=== PATIENT | female | born 1995 | race Caucasian/White ===

== ENCOUNTER → 2020-05-12 17:28 | Outpatient (CLI) | payer BC, MEDICAID, SELFPAY | PROVIDERS: Visit Provider Obstetrics & Gynecology | DX: Z11.59 Encounter for screening for other viral diseases (principal) | CPT/HCPCS: 87635; G2023; U0003 ==

== ENCOUNTER 2020-05-16 06:48 | Inpatient (IN) | payer BC, MEDICAID, SELFPAY ==
[2020-05-16] VITALS (57 sets, daily range): BP systolic 133–170; BP diastolic 61–101; PULSE 77–109; TEMP 36.3–38.1; O2SAT 93–100; BMI 49.6
[2020-05-16] MEDS: Lactated Ringers 1,000 ML 50 ML IV (07:35)
[2020-05-16] MEDS: 0.9% Normal Saline Single 100 ML IV.SOLN. IY (08:06)
[2020-05-16 08:11] LABS: Absolute Lymphocyte Count 2.25 X10^3/uL (0.83-4.51); Absolute Neutrophil Count 7.7 X10^3/uL (2.0-7.7); Basophil# 0.03 X10^3/uL; Basophil% 0.3 % (0-1); Eosinophil# 0.21 X10^3/uL; Eosinophils% 1.8 % (0-5); Hematocrit 37.8 % (37-47); Hemoglobin 12.3 g/dL (12.0-15.0); Lymphocyte # 2.25 X10^3/ul (4.0); Lymphocyte % 19.6 % (19-41); Mean Corp Hgb Conc 32.5 g/dL (32-36); Mean Corpuscular Hgb 29.3 pg (27.0-32.0); Mean Platelet Vol. 10.2 fl (6.2-12.0); Monocyte# 1.17 X10^3/uL; Monocyte% 10.2 % (0-10); NRBC Flagged by Analyzer 0 % (0-5); Neutrophil # 7.74 X10^3/uL (2.7-7.7); Neutrophil % 67.3 % (47-70); Platelet Count 289 K/mm3 (150-450); RBC Distribution Width CV 13.1 % (11.6-14.6); RBC Distribution Width SD 42.5 fl (35.1-43.9); White Blood Count 11.5 K/mm3 (4.4-11.0)
--- NOTE | 2020-05-16 08:27 | HP.PCM_ITS ---
History Date of Admission: 07/12/17 Final REJI: 05/31/20 Gestational age: 37 Weeks and 6 Days History of this : This is a 24 year-old, G 2P1 at 37.6 weeks gestation here for induction of labor for gestational hypertension. Denies headaches, visual changes or right upper quadrant pain. Allergies No Known Allergies Allergy (Verified 07/12/17 20:43) Home Medications: Home Medications Vit No.130/Iron/Folic [ Tablet] 1 each PO DAILY 07/12/17 Ibuprofen [Motrin] 600 mg PO Q6H PRN #60 tablet 07/16/17 Smoking Status: Never smoker Alcohol: None Number of Fetus(es): 1 History Past Pregnancies: Past Pregnancies Delivery Date Name GA/ Weeks Outcome Route Wt Sex Labor Length Anesthesia Delivery Location Provider FOB Labs: GBS neg Expected Delivery Method: Spontaneous Vaginal Review of Systems Constitutional: Denies: Anorexia Eyes: Denies: Blurred vision, Pain, Vision Change HEENT: Denies: Head Aches Cardiovascular: Denies: Chest Pain Gastrointestinal: Denies: Abdominal Pain Psychiatric: Reports: Depression Physical Exam Vitals: Vital Signs Pulse BP Pulse Ox 88 148/92 H 98 05/16/20 07:46 05/16/20 07:42 05/16/20 07:46 General: Alert, Oriented x3 Abdomen: Soft, Non Tender, Non-Distended, Gravid Neurological: Cranial nerves II-XII grossly intact [employer] INSPECTOR: Normal external genitalia Estimated gestational size: Appropriate for gestational size Presentation: Cephalic Cervix Dilation (cm): 2 Station: -2 Effacement (%): 50 Assessment/Plan This is a 24 year-old, @ 37.6 wks, GEST HTN- here for IOL 1) PRE E labs 2) Pitocin/Arzola- Arzola placed 30cc fluid- 3) Pain mgmt- epidural if requested 4) anticipate
[2020-05-16] MEDS: Oxytocin 30 units/NS 500 ml 30 UNITS/500 ML IV.SOLN IV (08:49)
[2020-05-16 09:00] LABS: AST(SGOT) 9 U/L (15-37); Alanine Aminotransfer ALT/SGPT 10 U/L (13-56); EST Glomerular Filtration Rate 162 mL/min (>60); Est Glom Filt Rate - Afr Amer 196 mL/min (>60); Uric Acid 5.6 mg/dL (2.6-6.0)
[2020-05-16] MEDS: Lactated Ringers 500 ML 999 ML IV (10:35)
[2020-05-16 11:15] LABS: Protein, Urine (Random) 76.9 mg/dL (<11.9); Protein:Creat Ratio 1144 mg/g CRE (0-200)
[2020-05-16] MEDS: fentaNYL-bupivacaine (epidural) 100 ML BAG EPIDURAL ×3 (11:43→20:22)
--- NOTE | 2020-05-16 12:19 | PCM.PN.BLA ---
Progress Note AROM performed- Clear fluid. IUPC and IFM placed. Pt is comfortable with Epidural in place. STROKE Vital Signs/Narrative: Vital Signs Temp Pulse BP Pulse Ox 05/16/20 12:04 97.9 F 93 139/83 H 05/16/20 12:00 97 98 05/16/20 11:59 98.1 F 99 145/76 H 05/16/20 11:55 103 H 143/78 H 98 05/16/20 11:54 98.3 F 101 H 165/94 H 05/16/20 11:50 99 98 05/16/20 11:49 96 151/78 H 05/16/20 11:45 101 H 98 05/16/20 11:44 95 155/83 H 05/16/20 11:40 96 99 05/16/20 11:39 154/97 H 05/16/20 11:35 88 98 05/16/20 11:34 99.1 F 103 H 146/92 H 05/16/20 11:30 81 98 05/16/20 11:25 77 99 05/16/20 11:24 167/81 H 05/16/20 11:20 86 99 05/16/20 11:10 84 99 05/16/20 11:06 81 148/79 H 05/16/20 10:37 81 146/73 H 05/16/20 09:54 83 97 05/16/20 09:53 147/85 H 05/16/20 09:20 77 140/90 H 05/16/20 08:48 78 142/83 H 98 05/16/20 08:47 80 170/101 H
[2020-05-16] MEDS: Lactated Ringers 1,000 ML 200 ML IV ×2 (14:06→18:37)
[2020-05-16] MEDS: Oxytocin 30 units/NS 500 ml 30 UNITS/500 ML IV.SOLN 334 UNITS IV (21:22)
--- NOTE | 2020-05-16 21:38 | PCM.OPRPT ---
Vaginal Delivery Maternal Presentation: Medically Indicated Induction Method of Induction: Pitocin, Arzola [facility] Reason for Induction: Preeclampsia, eclampsia - preeclampsia without severe features Amniotic Membrane Rupture Type: Artificial Amniotic Fluid Description: Clear Final REJI: 05/31/20 Final REJI Source: [place] <20 weeks Gestational age: 37 Weeks and 6 Days Date of Procedure: 05/16/20 Pre-Operative Diagnosis: Term gestation, Pre eclampsia without severe features Surgery/ Procedure Performed: Spontaneous Vaginal Delivery Type of Anesthesia: Epidural Description of Procedure: of Live male born without complication. Loose nuchal x 1. Placenta delivered without complication. Presentation: Vertex Placental Delivery Description: Spontaneous Placenta Disposition: [facility] Cord Vessel Description: 2 Vessels Nuchal Cord Compression: Without compression Cord Entanglement: Around neck x 1, loose Drain: Arzola to straight drain Estimated Blood Loss: 150 Infant A gender: Male (1 minute): 8 (5 minute): 9 Episiotomy Description: None Laceration: None Medications given after delivery: IV Pitocin Complications: None
[2020-05-17] MEDS: 0.9% Saline Lock 10 ML Syringe IV
[2020-05-17 03:27] VITALS: BP 129/72; PULSE 91; RESP 16; TEMP 36.3
--- NOTE | 2020-05-17 07:52 | PN.OBGYN_ITS ---
Subjective: pt seen at bedside, doing well. pt reports good pain control, lochia mild. bottle feeding. denies CESPEDES, visual changes. - Physical Exam Vitals/I&O's: Vital Signs Temp Pulse Resp BP Pulse Ox 97.4 F L 91 16 129/72 H 96 05/17/20 03:27 05/17/20 03:27 05/17/20 03:27 05/17/20 03:27 05/16/20 23:27 Oxygen Delivery Method Room Air Weight: 123 kg Body Mass Index (BMI) 49.6 Intake and Output for Last 24 Hours 05/15/20 05/16/20 05/17/20 23:59 23:59 23:59 Intake Total 3032.50 / 3365.50 583 / 583 Output Total 1250 / 1250 1000 / 1000 Balance 1782.50 / 2115.50 -417 / -417 General: Alert, Oriented x3 Abdomen: Soft, Non Tender, - - fundus firm Extremities: No Calf Tenderness Laboratory Results 05/16/20 07:35: WBC 11.5 H, RBC 4.20, Hgb 12.3, Hct 37.8, MCV 90.0, MCH 29.3, MCHC 32.5, RDW Std Deviation 42.5, RDW Coeff of Nawaf 13.1, Plt Count 289, MPV 10.2, Immature Gran % (Auto) 0.800, Neut % (Auto) 67.3, Lymph % (Auto) 19.6, [place] % (Auto) 10.2 H, Eos % (Auto) 1.8, Baso % (Auto) 0.3, Absolute Neuts (auto) 7.7, Absolute Lymphs (auto) 2.25, Nucleated RBC % 0 05/16/20 07:35: Blood Type A POSITIVE, Antibody Screen NEGATIVE 05/16/20 07:55: PT 13.0, INR 1.0, APTT 29.0 05/16/20 07:55: Creatinine 0.50 L, Estim Creat Clear Calc 138.40, Est GFR (MDRD) Af Amer 196, Est GFR (MDRD) Non-Af 162, Uric Acid 5.6, AST 9 L, ALT 10 L 05/16/20 10:50: U Random Total Protein 76.9 H, Urine Creatinine 67.20, Protein/Creatinin Ratio 1144 H Current Medications Acetaminophen (Tylenol) 1,000 mg PO Q8H PRN PRN PRN Reason: Pain Score 1-3/10 Bisacodyl (Dulcolax) 10 mg RECTAL UD PRN PRN Reason: If no BM Dibucaine (Dibucaine) 1 applic TOPICAL TID PRN PRN; Protocol PRN Reason: Discomfort Hydrocortisone (Hytone) 1 applic TOPICAL TID PRN PRN; Protocol PRN Reason: Discomfort Ibuprofen (Motrin) 600 mg PO Q6H PRN PRN PRN Reason: Pain Score 1-3/10 Methylergonovine Maleate (Methergine) 0.2 mg IM X1 PRN PRN Reason: Excess bleeding/uterine atony Ondansetron HCl (Zofran) 4 mg IV Q4H PRN PRN PRN Reason: Nausea Oxycodone HCl (Oxyir) 5 - 10 mg PO Q4H PRN PRN PRN Reason: Pain Score 4-10/10 Senna/Docusate Sodium (Senokot-S, Nikki-Colace) 1 - 2 tablet PO DAILY PRN PRN PRN Reason: Constipation Simethicone (Mylicon) 80 mg PO PCHS PRN PRN Reason: Indigestion/Stomach pain Sodium Chloride () 5 - 15 ml IV UD PRN PRN Reason: SALINE FLUSH Last Admin: 05/17/20 00:00 Dose: 10 ml Documented by: Medical Necessity - Tobacco Use Smoking Status: Never smoker Assessment/Plan PPD#1, doing well routine care pain mgmt monitor vs
[2020-05-17] MEDS: Ibuprofen 600 MG Tablet PO ×2 (07:54→16:25)
[2020-05-17] MEDS: Senna/Docusate Sodium 1 Tablet PO (07:55)
[2020-05-17 08:04] VITALS: BP 129/81; PULSE 90; RESP 18; TEMP 36.6; O2SAT 97
[2020-05-17 12:04] VITALS: BP 111/65; PULSE 94; RESP 18; TEMP 36.7; O2SAT 97
[2020-05-17 16:09] VITALS: BP 139/86; PULSE 89; RESP 18; TEMP 36.6; O2SAT 96
[2020-05-17 20:57] VITALS: BP 112/71; PULSE 87; RESP 14; TEMP 36.4
[2020-05-18 01:16] VITALS: BP 122/68; PULSE 75; RESP 14; TEMP 36.3
--- NOTE | 2020-05-18 08:56 | DCINST_ITS ---
Discharge Diet: No Restrictions Discharge Activity: Return to Normal Activity, May not drive while taking narcotic pain medications., May Shower May resume sexual activity in: 4-6 weeks Additional Activity Instructions:: Nothing in the vagina for 4-6 weeks. You may return to work/school in 6 weeks. Call your doctor if your incision/area has: Continuous Slow Oozing, Sudden Increased Bleeding, Increased Pain/ Swelling, Increased Redness, Foul Smelling Discharge Additional Instructions: If you experience any of the following, contact your healthcare provider. * Bleeding that soaks a pad every hour for 2 hours * Fever 100.4 or higher * Unrelieved incision or abdominal pain * Swelling, redness, discharge or bleeding from your incision or episiotomy site * Your incision begins to separate * Problems urinating (including inability to urinate or burning while urinating). * Visual changes * Severe headache * Flu-like symptoms * Pain or redness in one of both of your breasts * Pain, warmth, tenderness or swelling in your legs, especially the calf area * Frequent nausea and vomiting * Symptoms of depression or anxiety If you experience any of the following, call 911 or go to the nearest Emergency Room. * Chest pain * Problems breathing * Seizure activity * Partial or complete paralysis of a body part, slurred speech, weakness or drooping of the face, or a sudden inability to walk or hold your balance Allergies/Adverse Reactions: Allergies No Known Allergies Allergy (Verified 05/16/20 08:42) Medications to take at Discharge Vit No.130/Iron/Folic [ Tablet] 1 each PO DAILY 07/12/17 Famotidine [Pepcid] 20 mg PO DAILY 05/16/20 Ibuprofen [Motrin] 600 mg PO Q6H PRN #60 tab 05/18/20 The following prescriptions were given: Ibuprofen [Motrin] 600 mg PO Q6H PRN #60 tab PRN Reason: Pain Transmission Status: Pending to [id number] Please Follow Up With: Georgie Chino MD - [phone] When: Call to make an appointment with your doctor's office in 1-2 weeks and 6 weeks Primary Care Physician: Shabnam Pena, JOVANNY-C [Primary Care Provider] - Test Results: Test results from this visit will be discussed in further detail at your follow- up appointment, if applicable.
--- NOTE | 2020-05-18 08:56 | PCM.DCVAG ---
Discharge Diet: No Restrictions Discharge Activity: Return to Normal Activity, May not drive while taking narcotic pain medications., May Shower May resume sexual activity in: 4-6 weeks Additional Activity Instructions:: Nothing in the vagina for 4-6 weeks. You may return to work/school in 6 weeks. Call your doctor if your incision/area has: Continuous Slow Oozing, Sudden Increased Bleeding, Increased Pain/ Swelling, Increased Redness, Foul Smelling Discharge Additional Instructions: If you experience any of the following, contact your healthcare provider. Bleeding that soaks a pad every hour for 2 hours Fever 100.4 or higher Unrelieved incision or abdominal pain Swelling, redness, discharge or bleeding from your incision or episiotomy site Your incision begins to separate Problems urinating (including inability to urinate or burning while urinating). Visual changes Severe headache Flu-like symptoms Pain or redness in one of both of your breasts Pain, warmth, tenderness or swelling in your legs, especially the calf area Frequent nausea and vomiting Symptoms of depression or anxiety If you experience any of the following, call 911 or go to the nearest Emergency Room. Chest pain Problems breathing Seizure activity Partial or complete paralysis of a body part, slurred speech, weakness or drooping of the face, or a sudden inability to walk or hold your balance Allergies/Adverse Reactions: Allergies No Known Allergies Allergy (Verified 05/16/20 08:42) Medications to take at Discharge Vit No.130/Iron/Folic [ Tablet] 1 each PO DAILY 07/12/17 Famotidine [Pepcid] 20 mg PO DAILY 05/16/20 Ibuprofen [Motrin] 600 mg PO Q6H PRN #60 tab 05/18/20 The following prescriptions were given: Ibuprofen [Motrin] 600 mg PO Q6H PRN #60 tab PRN Reason: Pain Transmission Status: Pending to [id number] Please Follow Up With: Georgie Chino MD - [phone] When: Call to make an appointment with your doctor's office in 1-2 weeks and 6 weeks Primary Care Physician: Shabnam Pena NP-C [Primary Care Provider] - Test Results: Test results from this visit will be discussed in further detail at your follow-up appointment, if applicable.
--- NOTE | 2020-05-18 09:03 | PCM.PN.OB ---
Subjective: Patient seen at bedside, doing well. Patient reports good pain control. Mild lochia. Bottlefeeding. Patient denies any headaches or visual changes. Patient is ready for DC home today. - Physical Exam Vitals/I&O's: Vital Signs Temp Pulse Resp BP Pulse Ox 97.3 F L 75 14 122/68 H 96 05/18/20 01:16 05/18/20 01:16 05/18/20 01:16 05/18/20 01:16 05/17/20 16:09 Oxygen Delivery Method Room Air Weight: 123 kg Body Mass Index (BMI) 49.6 Intake and Output for Last 24 Hours 05/16/20 05/17/20 05/18/20 23:59 23:59 23:59 Intake Total 3032.50 / 3365.50 583 / 583 Output Total 1250 / 1250 1900 / 1900 Balance 1782.50 / 2115.50 -1317 / -1317 General: Alert, Oriented x3 Abdomen: Soft, Non Tender, Non-Distended, - - fundus firm Current Medications Acetaminophen (Tylenol) 1,000 mg PO Q8H PRN PRN PRN Reason: Pain Score 1-3/10 Bisacodyl (Dulcolax) 10 mg RECTAL UD PRN PRN Reason: If no BM Dibucaine (Dibucaine) 1 applic TOPICAL TID PRN PRN; Protocol PRN Reason: Discomfort Hydrocortisone (Hytone) 1 applic TOPICAL TID PRN PRN; Protocol PRN Reason: Discomfort Ibuprofen (Motrin) 600 mg PO Q6H PRN PRN PRN Reason: Pain Score 1-3/10 Last Admin: 05/17/20 16:25 Dose: 600 mg Documented by: Methylergonovine Maleate (Methergine) 0.2 mg IM X1 PRN PRN Reason: Excess bleeding/uterine atony Ondansetron HCl (Zofran) 4 mg IV Q4H PRN PRN PRN Reason: Nausea Oxycodone HCl (Oxyir) 5 - 10 mg PO Q4H PRN PRN PRN Reason: Pain Score 4-10/10 Senna/Docusate Sodium (Senokot-S, Nikki-Colace) 1 - 2 tablet PO DAILY PRN PRN PRN Reason: Constipation Last Admin: 05/17/20 07:55 Dose: 1 tablet Documented by: Simethicone (Mylicon) 80 mg PO PCHS PRN PRN Reason: Indigestion/Stomach pain Sodium Chloride () 5 - 15 ml IV UD PRN PRN Reason: SALINE FLUSH Last Admin: 05/17/20 00:00 Dose: 10 ml Documented by: Medical Necessity - Tobacco Use Smoking Status: Never smoker Assessment/Plan PPD#2, doing well routine care pain mgmt dc home f/u in office for BP check approx 1 week- monitor BP at home.
[2020-05-18 09:26] VITALS: BP 131/78; PULSE 71; RESP 16; TEMP 36.5; O2SAT 99
== END 2020-05-18 10:40 | disposition home or self-care (01) | DRG 807 ==
PROVIDERS: Admitting Provider Obstetrics & Gynecology; PCP Nurse Practitioner Family; Referring Provider Obstetrics & Gynecology; Visit Provider Obstetrics & Gynecology
DX: O14.04 Mild to moderate pre-eclampsia, complicating childbirth (principal); O13.4 Gestational [pregnancy-induced] hypertension without significant proteinuria, complicating childbirth; O69.81X0 Labor and delivery complicated by cord around neck, without compression, not applicable or unspecified; O99.62 Diseases of the digestive system complicating childbirth; K21.9 Gastro-esophageal reflux disease without esophagitis; Z79.899 Other long term (current) drug therapy; Z3A.37 37 weeks gestation of pregnancy; Z37.0 Single live birth
CPT/HCPCS: 59025; 59050; 82565; 82570; 84156; 84450; 84460; 84550; 85025; 85610; 85730; 86850; 86900; 86901; 99218; J7120; A4216; G0378